=== PATIENT | male | born 1960 ===

== ENCOUNTER 2019-09-15 19:33 | Emergency (ER) | payer OTHER ==
--- NOTE | 2019-09-15 20:16 | Emergency Department Report ---
Blank Doc - Documentation Documentation: 58-year-old male that presents with chest pain, sob and dizziness. This initial assessment/diagnostic orders/clinical plan/treatment(s) is/are subject to change based on patient's health status, clinical progression and re- assessment by fellow clinical providers in the ED. Further treatment and workup at subsequent clinical providers discretion. Patient/guardians urged not to elope from the ED as their condition may be serious if not clinically assessed and managed. Initial orders include: 1- Patient sent to MAIN ED for further evaluation and treatment 2- EKG 3- CXR 4- labs
[2019-09-15 20:58] LABS: Basophils # (Auto) 0.1 K/mm3 (0.0-0.1); Basophils % (Auto) 1.1 % (0.0-1.8); Eosinophils # (Auto) 0.3 K/mm3 (0.0-0.4); Eosinophils % (Auto) 3.6 % (0.0-4.3); Hematocrit 47.4 % (35.5-45.6); Lymphocytes # (Auto) 2.1 K/mm3 (1.2-5.4); Lymphocytes % (Auto) 29.2 % (13.4-35.0); Mean Corpuscular HGB Conc 34 % (32-34); Mean Corpuscular Volume 82 fl (84-94); Monocytes # (Auto) 0.6 K/mm3 (0.0-0.8); Monocytes % (Auto) 8.5 % (0.0-7.3); Platelet Count 181 K/mm3 (140-440); Red Blood Count 5.81 M/mm3 (3.65-5.03); Red Cell Distribution Width 13.4 % (13.2-15.2)
[2019-09-15 21:05] LABS: INR 0.94 (0.87-1.13)
[2019-09-15 21:06] LABS: Partial Thromboplastin Time 26.1 Sec. (24.2-36.6)
--- NOTE | 2019-09-15 21:08 | XRay Report ---
CHEST 2 VIEWS INDICATION: Chest Pain. COMPARISON: None. FINDINGS: Support devices: None. Heart: Within normal limits. Lungs/Pleura: No acute air space or interstitial disease. No significant pleural effusion. IMPRESSION: No acute findings. Signer Name: Chris Mcdermott MD Signed: 09/15/2019 9:04 PM Workstation Name: [id number]
[2019-09-15 21:19] LABS: Alanine Aminotransferase 16 units/L (7-56); Albumin 4.2 g/dL (3.9-5); BUN/Creatinine Ratio 19; Blood Urea Nitrogen 15 mg/dL (9-20); Calcium 9.2 mg/dL (8.4-10.2); Hemolysis Index 20
[2019-09-15] MEDS ORDERED: BUTALB/ACETAMINOPHEN/CAFFEINE TAB PO ONE (22:36)
[2019-09-15] MEDS ORDERED: ASPIRIN 325 MG TAB PO ONE (22:36)
[2019-09-15] MEDS ORDERED: MECLIZINE 25 MG TAB PO ONE (22:36)
--- NOTE | 2019-09-15 23:30 | Cat Scan Report ---
CT HEAD WITHOUT CONTRAST INDICATION : dizziness. TECHNIQUE: Axial, coronal and sagittal CT imaging was performed from the skull apex through the skul l base without contrast. All CT scans at this location are performed using CT dose reduction for ALA RA by means of automated exposure control. COMPARISON: None available. FINDINGS: PARENCHYMA: No mass, midline shift, hemorrhage, extraaxial collection or acute territorial infarctio n. VENTRICLES: Symmetric and normal in size. SOFT TISSUES: Soft tissues including the orbits appear normal. BONES: No acute osseous abnormality. SINUSES: No significant abnormality. ADDITIONAL FINDINGS: None. IMPRESSION: No acute intracranial abnormality. Signer Name: Carson Munoz MD Signed: 09/15/2019 11:25 PM Workstation Name: [id number]
--- NOTE | 2019-09-16 00:07 | Emergency Department Report ---
ED General Adult HPI - General Chief complaint: Dizziness Stated complaint: BLOOD PRESSURE Time Seen by Provider: 09/15/19 20:15 Source: patient Mode of arrival: Ambulatory Limitations: No Limitations - History of Present Illness Initial comments: Patient is a 58-year-old [place] male with a history of hypertension and noncompliant on medications who presented to the ED with complaint of persistently elevated blood pressure, headache, chest wall tightness and lightheadedness with intermittent dizziness for the last 12 hours. Patient states that the last time he took his blood pressure medications was 3 days ago. Patient denies syncope, shortness of breath, cough, vision changes, seizures, diaphoresis, nausea, loss of consciousness, vomiting, neck pain or back pain or abdominal pain and palpitations. Patient states that he is supposed to be taking losartan 100 mg daily for hypertension. MD Complaint: Elevated BP; Headache; dizziness; chest pain -: Sudden, hour(s) (12) Location: head, chest Radiation: non-radiation Severity scale (0 -10): 4 Quality: burning, dull Consistency: intermittent Improves with: none Worsens with: none Associated Symptoms: denies other symptoms, chest pain, headaches, loss of appetite. denies: confusion, cough, diaphoresis, fever/chills, malaise, elder sea/vomiting, rash, seizure, shortness of breath, syncope, weakness, other Treatments Prior to Arrival: none - Related Data Previous Rx's Medication Instructions Recorded Last Taken Type Amlodipine Besylate [Norvasc] 5 mg PO DAILY #30 tablet 09/16/19 Unknown Rx Butalb/Acetamin/Caff 50-325-40 1 tab PO Q6HR PRN #12 tab 09/16/19 Unknown Rx [Fioricet 50-325-40] Meclizine [Antivert] 25 mg PO Q8H PRN #24 tablet 09/16/19 Unknown Rx Allergies Allergy/AdvReac Type Severity Reaction Status Date / Time No Known Allergies Allergy Verified 09/15/19 19:39 ED Review of Systems ROS: Stated complaint: BLOOD PRESSURE Other details as noted in HPI Constitutional: malaise. denies: chills, fever Eyes: denies: eye pain, eye discharge, vision change ENT: denies: ear pain, throat pain Respiratory: denies: cough, shortness of breath, SOB with exertion, SOB at rest, wheezing Cardiovascular: chest pain (chest wall pain). denies: palpitations, dyspnea on exertion, syncope, paroxysmal nocturnal dyspnea Endocrine: no symptoms reported Gastrointestinal: denies: abdominal pain, nausea, vomiting, diarrhea, constipation, hematemesis, hematochezia Genitourinary: denies: urgency, dysuria Musculoskeletal: denies: back pain, joint swelling, arthralgia Skin: denies: rash, lesions Neurological: headache, other (dizziness ). denies: weakness, paresthesias Psychiatric: denies: anxiety, depression Hematological/Lymphatic: denies: easy bleeding, easy bruising ED Past Medical Hx - Past Medical History Previous Medical History?: Yes Hx Hypertension: Yes - Surgical History Past Surgical History?: No - Social History Smoking Status: Never Smoker Substance Use Type: None - Medications Home Medications: Home Medications Medication Instructions Recorded Confirmed Last Taken Type Amlodipine Besylate [Norvasc] 5 mg PO DAILY #30 tablet 09/16/19 Unknown Rx Butalb/Acetamin/Caff 50-325-40 1 tab PO Q6HR PRN #12 tab 09/16/19 Unknown Rx [Fioricet 50-325-40] Meclizine [Antivert] 25 mg PO Q8H PRN #24 tablet 09/16/19 Unknown Rx ED Physical Exam - General Limitations: No Limitations General appearance: alert, in no apparent distress - Head Head exam: Present: atraumatic, normocephalic, normal inspection - Eye Eye exam: Present: normal appearance, PERRL, EOMI Pupils: Present: normal accommodation - ENT ENT exam: Present: normal exam, normal orophraynx, mucous membranes moist, TM's normal bilaterally, normal external ear exam - Neck Neck exam: Present: normal inspection, full ROM - Respiratory Respiratory exam: Present: normal lung sounds bilaterally. Absent: respiratory distress, wheezes, rales, chest wall tenderness, accessory muscle use, decreased breath sounds, prolonged expiratory - Cardiovascular Cardiovascular Exam: Present: regular rate, normal rhythm, normal heart sounds. Absent: systolic murmur, diastolic murmur, rubs, gallop - GI/Abdominal GI/Abdominal exam: Present: soft, normal bowel sounds. Absent: tenderness, guarding, rebound, hyperactive bowel sounds, hypoactive bowel sounds - Extremities Exam Extremities exam: Present: normal inspection, full ROM, normal capillary refill - Back Exam Back exam: Present: normal inspection, full ROM. Absent: CVA tenderness (L), muscle spasm, paraspinal tenderness, vertebral tenderness - Neurological Exam Neurological exam: Present: alert, oriented X3, CN II-XII intact, normal gait, reflexes normal - Psychiatric Psychiatric exam: Present: normal affect, normal mood, anxious. Absent: flat affect, manic, homicidal ideation, suicidal ideation - Skin Skin exam: Present: warm, dry, intact, normal color. Absent: rash ED Course Vital Signs 09/15/19 09/16/19 20:11 00:13 Temperature 98.6 F Pulse Rate 83 79 Respiratory 18 18 Rate Blood Pressure 159/107 Blood Pressure 150/99 [Left] O2 Sat by Pulse 98 98 Oximetry ED Medical Decision Making - Lab Data Result diagrams: 09/15/19 20:27 09/15/19 20:27 - EKG Data EKG shows normal: sinus rhythm Rate: normal - EKG Data Interpretation: normal EKG 09/16/19 00:06 EKG shows normal sinus rhythm with a ventricular rate of 71 bpm, no ST or T-wave abnormalities or pathological Q waves. - Radiology Data Radiology results: report reviewed, [place] [address] Cat Scan Report Signed Patient: MARILIA HECTOR MR#: [id number] : 1960 Acct:[id number] Age/Sex: 58 / M ADM Date: 09/15/19 Loc: ED Attending Dr: Ordering Physician: EMELINA GIBBS Date of Service: 09/15/19 Procedure(s): CT head/brain wo con Accession Number(s): [id number] cc: EMELINA GIBBS CT HEAD WITHOUT CONTRAST INDICATION : dizziness. TECHNIQUE: Axial, coronal and sagittal CT imaging was performed from the skull apex through the skull base without contrast. All CT scans at this location are performed using CT dose reduction for ALARA by means of automated exposure control. COMPARISON: None available. FINDINGS: PARENCHYMA: No mass, midline shift, hemorrhage, extraaxial collection or acute territorial infarction. VENTRICLES: Symmetric and normal in size. SOFT TISSUES: Soft tissues including the orbits appear normal. BONES: No acute osseous abnormality. SINUSES: No significant abnormality. ADDITIONAL FINDINGS: None. IMPRESSION: No acute intracranial abnormality. Signer Name: Carson Munoz MD Signed: 09/15/2019 11:25 PM Workstation Name: [id number] Transcribed By: HENRRY Dictated By: Carson Munoz MD Electronically Authenticated By: Carson Munoz MD Signed Date/Time: 09/15/192324 DD/ 23 TD/TT: Findings [facility] [address] [place] [address] XRay Report Signed Patient: MARILIA HECTOR MR#: [id number] : 1960 Acct:[id number] Age/Sex: 58 / M ADM Date: 09/15/19 Loc: ED Attending Dr: Ordering Physician: HARDY NAPIER NP Date of Service: 09/15/19 Procedure(s): XR chest routine 2V Accession Number(s): [id number] cc: HARDY NAPIER NP Fluoro Time In Minutes: CHEST 2 VIEWS INDICATION: Chest Pain. COMPARISON: None. FINDINGS: Support devices: None. Heart: Within normal limits. Lungs/Pleura: No acute air space or interstitial disease. No significant pleural effusion. IMPRESSION: No acute findings. Signer Name: Chris Mcdermott MD Signed: 09/15/2019 9:04 PM Workstation Name: [id number] Transcribed By: LYDIA Dictated By: Chris Mcdermott MD Electronically Authenticated By: Chris Mcdermott MD Signed Date/Time: 09/15/192103 DD/ 02 TD/TT: - Medical Decision Making This is a 58-year-old [place] male with a history of hypertension who presented to the ED with elevated blood pressure, headache, dizziness and chest tightness for 12 hours intermittently after he failed to take his blood pressure medications for 2 days. In the ED, patient is alert and oriented 3, hypertensive in triage but otherwise in no acute distress. EKG shows normal sinus rhythm with a ventricular rate of 71 bpm, and no ST or T-wave abnormalities or pathological Q waves. Chest x-ray shows no acute cardiopulmonary abnormalities or pneumonitis. Head CT scan without contrast justin ws no acute intracranial abnormalities or hemorrhage. Lab test results were reviewed and are all nonactionable including initial troponin and repeat troponin levels. Patient was treated in the ED for headache and dizziness. On reevaluation, patient's vital signs are stable, headache and dizziness resolved. - Differential Diagnosis Dizziness; Uncontrolled HTN; ACS; SAH; Anxiety; tension headache Critical care attestation.: If time is entered above; I have spent that time in minutes in the direct care of this critically ill patient, excluding procedure time. ED Disposition Clinical Impression: Uncontrolled stage 2 hypertension, Light-headedness Tension type headache Qualifiers: Headache chronicity pattern: acute headache Intractability: not intractable Qualified Code(s): G44.209 - Tension-type headache, unspecified, not intractable Disposition: DC-01 TO HOME OR SELFCARE Is pt being admited?: No Does the pt Need Aspirin: No Condition: Stable Instructions: Hypertension (ED), Lightheadedness (ED), Acute Headache (ED) Additional Instructions: Take medications with food, drink plenty of fluids and follow-up with your primary care physician in 5-7 days for reevaluation. Return to the ED immediately if symptoms get worse. Prescriptions: Meclizine [Antivert] 25 mg PO Q8H PRN #24 tablet PRN Reason: Vertigo Butalb/Acetamin/Caff 50-325-40 [Fioricet 50-325-40] 1 tab PO Q6HR PRN #12 tab PRN Reason: Headache Amlodipine Besylate [Norvasc] 5 mg PO DAILY #30 tablet Referrals: PRIMARY CARE, [Primary Care Provider] - 3-5 Days Forms: Work/School Release Form(ED) Time of Disposition: 00:14 Print Language: HONDURAN
[2019-09-16 00:14] VITALS: BP 150/99
== END 2019-09-16 01:06 | disposition home or self-care (01) ==
LOC: ED 19:33
DX: I10 Essential (primary) hypertension (principal); R42 Dizziness and giddiness; G44.209 Tension-type headache, unspecified, not intractable; Z79.899 Other long term (current) drug therapy
CPT/HCPCS: 36415; 70450; 71046; 80053; 84484; 85025; 85610; 85730; 93005; 93010

== ENCOUNTER 2021-02-05 21:25 | Observation (INO) | payer OTHER ==
[2021-02-05] MEDS ORDERED: ASPIRIN 325 MG TAB PO ONE (21:37)
--- NOTE | 2021-02-05 22:01 | XRay Report ---
CHEST PA AND LATERAL VIEWS INDICATION: chest pain. COMPARISON: 09/15/2019 FINDINGS: Support devices: None Heart: Normal and unchanged Lungs/Pleura: No acute pulmonary or pleural findings. IMPRESSION: 1. No active disease and no interval change. Signer Name: Jerel Son MD Signed: 02/05/2021 9:56 PM Workstation Name: [id number]
[2021-02-05 22:15] LABS: Basophils # (Auto) 0.1 K/mm3 (0.0-0.1); Basophils % (Auto) 0.7 % (0.0-1.8); Eosinophils # (Auto) 0.1 K/mm3 (0.0-0.4); Eosinophils % (Auto) 1.1 % (0.0-4.3); Hematocrit 43.6 % (35.5-45.6); Hemoglobin 14.9 gm/dl (11.8-15.2); Lymphocytes # (Auto) 2.4 K/mm3 (1.2-5.4); Lymphocytes % (Auto) 29.5 % (13.4-35.0); Mean Corpuscular HGB Conc 34 % (32-34); Mean Corpuscular Volume 83 fl (84-94); Monocytes # (Auto) 0.5 K/mm3 (0.0-0.8); Monocytes % (Auto) 6.6 % (0.0-7.3); Platelet Count 205 K/mm3 (140-440); Red Blood Count 5.26 M/mm3 (3.65-5.03); Red Cell Distribution Width 13.7 % (13.2-15.2)
[2021-02-05 22:31] LABS: Alanine Aminotransferase 21 units/L (7-56); Albumin 4.6 g/dL (3.9-5); BUN/Creatinine Ratio 14; Blood Urea Nitrogen 13 mg/dL (9-20); Calcium 9.3 mg/dL (8.4-10.2); Hemolysis Index 16
--- NOTE | 2021-02-05 23:20 | Emergency Department Report ---
ED General Adult HPI - General Chief complaint: Chest Pain Stated complaint: DIZZINESS/CHEST PAIN PUI?: No Time Seen by Provider: 02/05/21 23:05 Source: patient, RN notes reviewed, old records reviewed Mode of arrival: Ambulatory Limitations: No Limitations - History of Present Illness Initial comments: The patient was evaluated in the emergency department for symptoms described in the history of present illness. He/she was evaluated in the context of the global COVID-19 pandemic, which necessitated consideration that the patient might be at risk for infection with the virus that causes COVID-19. Institutional protocols and algorithms that pertain to the evaluation of patients at risk for COVID-19 are in a state of rapid change based on information released by regulatory bodies including the CDC and federal and state organizations. These policies and algorithms were followed during the patient's care in the emergency department. Please note that these policies, procedures and recommendations changed on a rapid basis. Past medical history: Hypertension, family history significant for coronary artery disease in patient's brother, who is now . Primary CARE doctor: Dr. Ramos The patient is a 60-year-old gentleman. He is not known to myself previously. He presents to the ER today with a complaint of nontraumatic left-sided chest burning, which has been present for approximately 14 hours. This left-sided pain does not radiate to the back, arms or neck. He denies vomiting, diaphoresis but endorses mild intermittent shortness of breath. He denies leg pain, leg swelling, DVT and pulmonary embolism risk factors. He denies headache and neck pain, abdominal pain, vomiting, hematemesis, Covid symptomatology. He did endorse a sensation of "dizziness." He describes this as a sensation of feeling "weak." The patient subjectively feels like he is not off balance, and also denies subjective ataxia, loss of vision, and focal extremity weakness/numbness. He took 1 tablet of aspirin this morning. 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 -: Gradual, hour(s) Location: chest Radiation: non-radiation Quality: burning Consistency: constant Improves with: none Worsens with: none Associated Symptoms: denies other symptoms, other (Patient reports dizziness) - Related Data Previous Rx's Medication Instructions Recorded Last Taken Type Amlodipine Besylate [Norvasc] 5 mg PO DAILY #30 tablet 09/16/19 1 Day Ago Rx ~02/05/21 Butalb/Acetamin/Caff 50-325-40 1 tab PO Q6HR PRN #12 tab 09/16/19 1 Day Ago Rx [Fioricet 50-325-40] ~02/05/21 Meclizine [Antivert] 25 mg PO Q8H PRN #24 tablet 09/16/19 1 Day Ago Rx ~02/05/21 Allergies Allergy/AdvReac Type Severity Reaction Status Date / Time No Known Allergies Allergy Verified 09/15/19 19:39 ED Review of Systems ROS: Stated complaint: DIZZINESS/CHEST PAIN Other details as noted in HPI Constitutional: denies: fever Eyes: denies: vision change ENT: denies: epistaxis Respiratory: shortness of breath. denies: cough Cardiovascular: chest pain Gastrointestinal: denies: abdominal pain, nausea, vomiting, hematemesis, melena, hematochezia Genitourinary: denies: dysuria Musculoskeletal: denies: back pain Neurological: weakness. denies: headache, abnormal gait ED Past Medical Hx - Past Medical History Previous Medical History?: Yes Hx Hypertension: Yes - Surgical History Past Surgical History?: No - Social History Smoking Status: Never Smoker Substance Use Type: None - Medications Home Medications: Home Medications Medication Instructions Recorded Confirmed Last Taken Type Amlodipine Besylate [Norvasc] 5 mg PO DAILY #30 tablet 09/16/19 02/06/21 1 Day Ago Rx ~02/05/21 Butalb/Acetamin/Caff 50-325-40 1 tab PO Q6HR PRN #12 tab 09/16/19 02/06/21 1 Day Ago Rx [Fioricet 50-325-40] ~02/05/21 Meclizine [Antivert] 25 mg PO Q8H PRN #24 tablet 09/16/19 02/06/21 1 Day Ago Rx ~02/05/21 ED Physical Exam - General Limitations: No Limitations General appearance: alert, in no apparent distress - Head Head exam: Present: atraumatic, normocephalic - Eye Eye exam: Present: normal appearance, PERRL, EOMI, other (Visual acuity intact to finger counting, color perception, reading at a close distance). Absent: nystagmus - ENT ENT exam: Present: normal exam, normal orophraynx, mucous membranes moist, normal external ear exam - Neck Neck exam: Present: normal inspection, full ROM. Absent: tenderness, meningismus - Respiratory Respiratory exam: Present: normal lung sounds bilaterally. Absent: respiratory distress, wheezes, rales, rhonchi, stridor, decreased breath sounds - Cardiovascular Cardiovascular Exam: Present: normal rhythm, tachycardia, normal heart sounds. Absent: systolic murmur, diastolic murmur, rubs, gallop - GI/Abdominal GI/Abdominal exam: Present: soft. Absent: distended, tenderness, guarding, rebound, rigid, pulsatile mass - Rectal Rectal exam: Present: deferred - Extremities Exam Extremities exam: Present: normal inspection, full ROM, other (2+ pulses noted in the bilateral upper and lower extremities. There is no palpable cord. negative Homans sign. Muscular compartments are soft. The pelvis is stable.). Absent: pedal edema, calf tenderness - Back Exam Back exam: Present: normal inspection, full ROM. Absent: tenderness, CVA tenderness (R), CVA tenderness (L), paraspinal tenderness, vertebral tenderness - Neurological Exam Neurological exam: Present: alert (While ambulating with a tandem gait, patient became very unsteady.), oriented X3, abnormal gait (There is no past-pointing. There is no pronator drift. There is normal [id number]. Patient walks with a relatively steady gait, however, borderline positive Romberg, not able to t olerate tandem gait), other (No facial droop. Tongue midline. Extraocular movements intact bilaterally. Facial sensation intact to light touch in V1, V2, V3 distribution bilaterally. 5 and a 5 strength in 4 extremities. Sensation intact to light touch in 4 extremities.). Absent: motor sensory deficit - Psychiatric Psychiatric exam: Present: normal affect, normal mood - Skin Skin exam: Present: warm, dry, intact, normal color. Absent: rash ED Course Vital Signs 02/05/21 02/05/21 02/05/21 21:32 23:39 23:40 Temperature 98.8 F Pulse Rate 104 H 81 82 Respiratory 18 12 10 L Rate Blood Pressure 163/100 165/108 O2 Sat by Pulse 97 100 Oximetry 02/05/21 02/06/21 02/06/21 23:56 00:00 00:16 Temperature Pulse Rate 82 83 76 Respiratory 10 L 13 Rate Blood Pressure 165/108 153/95 153/95 O2 Sat by Pulse 98 100 97 Oximetry 02/06/21 02/06/21 02/06/21 00:30 00:46 01:00 Temperature Pulse Rate 71 83 79 Respiratory 19 11 L 17 Rate Blood Pressure 131/88 165/108 134/89 O2 Sat by Pulse 98 100 98 Oximetry 02/06/21 02/06/21 02/06/21 01:16 01:30 01:46 Temperature Pulse Rate 70 65 69 Respiratory 15 14 12 Rate Blood Pressure 134/89 126/84 126/84 O2 Sat by Pulse 97 100 99 Oximetry 02/06/21 02/06/21 02/06/21 02:00 02:16 02:30 Temperature Pulse Rate 77 69 70 Respiratory 18 17 13 Rate Blood Pressure 131/88 131/88 126/94 O2 Sat by Pulse 98 100 97 Oximetry 02/06/21 02/06/21 02/06/21 02:46 03:00 03:16 Temperature Pulse Rate 86 80 71 Respiratory 16 16 19 Rate Blood Pressure 126/94 128/92 128/92 O2 Sat by Pulse 99 99 Oximetry - Reevaluation(s) Reevaluation #1: 02/05/21 23:32 Differential diagnosis, including but not limited to: GERD, gastritis, hiatal hernia, pneumonia, pulmonary embolism, acute coronary syndrome, intracranial lesion Assessment and plan: 60-year-old gentleman, who is tachycardic, with a new left axis deviation, new left anterior fascicular block, complaint of chest pain, moderate risk for major adverse cardiac event as per heart score, with GCS of 15, NIH score of 0, who walks with a steady regular gait, but has an abnormal tandem gait, with complaint of chest pain and dizziness. Not a TPA candidate as he presents more than 4.5 hours after symptom onset, his last known well time is not exactly known, but he believes his chest pain started at 9:00 this morning. His neurologic examination is not suggestive of a large vessel occlusion. He is amenable to admission and hospitalization for cardiac risk ratification. He denies consumption of medications to treat erectile dysfunction. We will obtain CT angiogram of the chest, given tachycardia, left axis deviation, left anterior fascicular block, chest pain, and complaint of dizziness. We will also obtain noncontrast CT scan of the brain. Assuming no hemorrhage, patient will be given aspirin. Reassess after initial data points Reevaluation #2: 02/06/21 01:09 CT scan of the brain negative for acute findings CT angiogram chest negative for pulmonary embolism. It does demonstrate a 5.5 cm a sending thoracic aneurysm, without evidence of rupture or dissection. I contacted cardiothoracic surgery on-call for [facility], Dr. Sierra Webb, and we discussed the patient's history, physical, and pertinent imaging studies. She advises that this finding does not require emergent or emergent transfer at this time, this can be followed up as an outpatient, preferably within the next few weeks, once the patient has been medically optimized and had a cardiac risk ratification, etc. Given that patient has improved blood pressure, equal pulses in the upper and lower extremities, no abdominal pain, does not appear to be in acute distress at this time, I am in agreement with this plan of care and recommendation. Patient will be admitted to the internal medicine service under the care of Dr. Jessica Mcfadden ED Medical Decision Making - Lab Data Result diagrams: 02/07/21 05:29 02/07/21 05:29 Vital Signs 02/05/21 21:32 Temperature 98.8 F Pulse Rate 104 H Respiratory 18 Rate Blood Pressure 163/100 O2 Sat by Pulse 97 Oximetry Lab Results 02/05/21 02/05/21 Range/Units 21:50 21:50 WBC 8.1 (4.5-11.0) K/mm3 RBC 5.26 H (3.65-5.03) M/mm3 Hgb 14.9 (11.8-15.2) gm/dl Hct 43.6 (35.5-45.6) % MCV 83 L (84-94) fl MCH 28 (28-32) pg MCHC 34 (32-34) % RDW 13.7 (13.2-15.2) % Plt Count 205 (140-440) K/mm3 Lymph % (Auto) 29.5 (13.4-35.0) % [place] % (Auto) 6.6 (0.0-7.3) % Eos % (Auto) 1.1 (0.0-4.3) % Baso % (Auto) 0.7 (0.0-1.8) % Lymph # (Auto) 2.4 (1.2-5.4) K/mm3 [place] # (Auto) 0.5 (0.0-0.8) K/mm3 Eos # (Auto) 0.1 (0.0-0.4) K/mm3 Baso # (Auto) 0.1 (0.0-0.1) K/mm3 Seg Neutrophils % 62.1 (40.0-70.0) % Seg Neutrophils # 5.0 (1.8-7.7) K/mm3 Sodium 138 (137-145) mmol/L Potassium 3.8 (3.6-5.0) mmol/L Chloride 102.9 (98-107) mmol/L Carbon Dioxide 23 (22-30) mmol/L Anion Gap 16 mmol/L BUN 13 (9-20) mg/dL Creatinine 0.9 (0.8-1.3) mg/dL Estimated GFR > 60 ml/min BUN/Creatinine Ratio 14 % Glucose 117 H (75-100) mg/dL Calcium 9.3 (8.4-10.2) mg/dL Total Bilirubin 0.50 (0.1-1.2) mg/dL AST 17 (5-40) units/L ALT 21 (7-56) units/L Alkaline Phosphatase 64 (35-129) units/L Troponin T < 0.010 (0.00-0.029) ng/mL Total Protein 7.7 (6.3-8.2) g/dL Albumin 4.6 (3.9-5) g/dL Albumin/Globulin Ratio 1.5 % - EKG Data -: EKG Interpreted by Oh EKG shows normal: sinus rhythm Rate: tachycardia - EKG Data Interpretation: other 02/05/21 23:29 EKG interpreted 21: 44 Sinus rhythm, first-degree AV block, left axis deviation, left anterior fascicular block, left ventricular hypertrophy, and poor R wave progression. This is an abnormal EKG. When compared to prior EKG from 2019, left axis deviation is new, left anterior fascicular block is new. This is not a STEMI. - Radiology Data Radiology results: pending, report reviewed, image reviewed [facility] [address] [place] [address] XRay Report Signed Patient: MARILIA HECTOR MR#: [id number] : 1960 Acct:[id number] Age/Sex: 60 / M ADM Date: 02/05/21 Loc: ED Attending Dr: Ordering Physician: CALLY HERNANDEZ MD Date of Service: 02/05/21 Procedure(s): XR chest routine 2V Accession Number(s): [id number] cc: CALLY HERNANDEZ MD Fluoro Time In Minutes: CHEST PA AND LATERAL VIEWS INDICATION: chest pain. COMPARISON: 09/15/2019 FINDINGS: Support devices: None Heart: Normal and unchanged Lungs/Pleura: No acute pulmonary or pleural findings. IMPRESSION: 1. No active disease and no interval change. Signer Name: Jerel Son MD Signed: 02/05/2021 9:56 PM Workstation Name: [id number] Transcribed By: TM Dictated By: Jerel Son MD Electronically Authenticated By: Jerel Son MD Signed Date/Time: 02/05/212155 DD/ 54 CTA CHEST WITH IV CONTRAST INDICATION / CLINICAL INFORMATION: dizzy chest pain ekg changes. TECHNIQUE: Axial CT images were obtained through the chest after injection of 100 mL Omnipaque 350 IV contrast. 3 plane MIP and/or 3D reconstructions were produced. All CT scans at this location are performed using CT dose reduction for ALARA by means of automated exposure control. COMPARISON: None available. FINDINGS: PULMONARY ARTERIES: No pulmonary emboli. THORACIC AORTA: Aneurysmal dilation of the ascending thoracic aorta measuring up to 5.5 cm in diameter. HEART: No significant abnormality. CORONARY ARTERIES: No significant calcification. PLEURA: No pleural effusion. No pneumothorax. LYMPH NODES: No significant adenopathy. LUNGS: No acute air space or interstitial disease. ADDITIONAL FINDINGS: None. UPPER ABDOMEN: No acute findings. Right renal cyst. SKELETAL STRUCTURES: No significant osseous abnormality. IMPRESSION: 1. No CT evidence for pulmonary embolism. 2. No acute findings. 3. Aneurysmal dilation of the ascending thoracic aorta measuring up to 5.5 cm in diameter. Signer Name: Liv Gill MD Signed: 02/05/2021 11:44 PM Workstation Name: [id number] CT head/brain wo con INDICATION: DIZZY. TECHNIQUE: Routine CT head without contrast. All CT scans at this location are performed using CT dose reduction for ALARA by means of automated exposure control. COMPARISON: CT head 09/15/2019 FINDINGS: BRAIN / INTRACRANIAL CONTENTS: No acute hemorrhage, mass effect, midline shift, or hydrocephalus. No appreciable acute large territorial or lacunar infarct. No chronic infarct or focal atrophy. Normal brain volume and ventricular/sulcal size for age. ORBITS: No significant abnormality of visualized orbits. SINUSES / MASTOIDS: No significant abnormality of visualized sinuses and mastoid air cells. ADDITIONAL FINDINGS: None. IMPRESSION: 1. No acute intracranial abnormality. Signer Name: Liv Glil MD Signed: 02/05/2021 11:39 PM Workstation Name: [facility] Critical Care Time: Yes Critical care time in (mins) excluding proc time.: 35 Critical care attestation.: If time is entered above; I have spent that time in minutes in the direct care of this critically ill patient, excluding procedure time. ED Disposition Clinical Impression: Acute chest pain, Elevated blood pressure reading, Abnormal EKG, Dizziness, Aneurysm, ascending aorta Disposition: OP ADMIT IP TO THIS HOSP Is pt being admited?: Yes Does the pt Need Aspirin: Yes Condition: Good Heart Score - HEART Score History: Moderately suspicious EKG: Non-specific Age: 45-65 Risk factors: > 3 risk factors or hx of atherosclerotic disease Troponin: < normal limit HEART Score: 5 - EKG Read Time Time EKG Completed: 21:38 EKG Read Time: 21:44 - Critical Actions Critical Actions: 4-6 pts:12-16.6% risk of adverse cardiac event. Should be admitted - Assessment Assessment Interval: Baseline - Level of Consciousness 1a. Level of Consciousness: alert/keenly responsive - LOC Questions 1b. LOC Questions: answers both correctly - LOC Command 1c. LOC Commands: performs tasks correctly - Best Gaze 2. Best Gaze: normal - Visual 3. Visual: no visual loss - Facial Palsy 4. Facial Palsy: normal symmetrical movement - Motor Arm 5a. Motor Arm Left: no drift 5b. Motor Arm Right: no drift - Motor Leg 6a. Motor Leg Left: no drift 6b. Motor Leg Right: no drift - Limb Ataxia 7. Limb Ataxia: absent - Sensory 8. Sensory: normal - Best Language 9. Best Language: no aphasia - Dysarthria 10. Dysarthria: normal - Extinction and Inattention 11. Extinction/Inattention: no abnormality - Scoring Total Score: 0 Stroke Severity: No Stroke Symptoms
[2021-02-05] MEDS ORDERED: FAMOTIDINE 20 MG/2 ML INJ IV ONE (23:21)
[2021-02-05] MEDS ORDERED: NITROGLYCERIN 0.4 MG TAB SUBL SL PRN (23:21)
[2021-02-05] MEDS ORDERED: SODIUM CHLORIDE 0.9% 500 ML 500 ML IV ONE (23:21)
--- NOTE | 2021-02-06 00:43 | Cat Scan Report ---
CT head/brain wo con INDICATION: DIZZY. TECHNIQUE: Routine CT head without contrast. All CT scans at this location are performed using CT dos e reduction for ALARA by means of automated exposure control. COMPARISON: CT head 09/15/2019 FINDINGS: BRAIN / INTRACRANIAL CONTENTS: No acute hemorrhage, mass effect, midline shift, or hydrocephalus. No appreciable acute large territorial or lacunar infarct. No chronic infarct or focal atrophy. Normal b rain volume and ventricular/sulcal size for age. ORBITS: No significant abnormality of visualized orbits. SINUSES / MASTOIDS: No significant abnormality of visualized sinuses and mastoid air cells. ADDITIONAL FINDINGS: None. IMPRESSION: 1. No acute intracranial abnormality. Signer Name: Liv Gill MD Signed: 02/06/2021 12:39 AM Workstation Name: [id number]
--- NOTE | 2021-02-06 00:49 | Cat Scan Report ---
CTA CHEST WITH IV CONTRAST INDICATION / CLINICAL INFORMATION: dizzy chest pain ekg changes. TECHNIQUE: Axial CT images were obtained through the chest after injection of 100 mL Omnipaque 350 IV contrast. 3 plane MIP and/or 3D reconstructions were produced. All CT scans at this location are performed usin g CT dose reduction for JEIMYRA by means of automated exposure control. COMPARISON: None available. FINDINGS: PULMONARY ARTERIES: No pulmonary emboli. THORACIC AORTA: Aneurysmal dilation of the ascending thoracic aorta measuring up to 5.5 cm in diamete r. HEART: No significant abnormality. CORONARY ARTERIES: No significant calcification. PLEURA: No pleural effusion. No pneumothorax. LYMPH NODES: No significant adenopathy. LUNGS: No acute air space or interstitial disease. ADDITIONAL FINDINGS: None. UPPER ABDOMEN: No acute findings. Right renal cyst. SKELETAL STRUCTURES: No significant osseous abnormality. IMPRESSION: 1. No CT evidence for pulmonary embolism. 2. No acute findings. 3. Aneurysmal dilation of the ascending thoracic aorta measuring up to 5.5 cm in diameter. Signer Name: Liv Gill MD Signed: 02/06/2021 12:44 AM Workstation Name: [id number]
[2021-02-06] MEDS ORDERED: METOPROLOL TARTRATE 5 MG/5 ML INJ IV ONE (00:52)
[2021-02-06] MEDS ORDERED: ASPIRIN 81 MG TAB CHEW PO ONE (01:12)
[2021-02-06] MEDS ORDERED: MORPHINE 2 MG/1 ML INJ IV PRN (01:48)
[2021-02-06] MEDS ORDERED: NITROGLYCERIN 0.4 MG TAB SUBL SL PRN (01:48)
[2021-02-06] MEDS ORDERED: MAGNESIUM HYDROXIDE (MOM) ORAL LIQD UDC PO PRN (01:48)
[2021-02-06] MEDS ORDERED: ONDANSETRON 4 MG/2 ML INJ IV PRN (01:48)
[2021-02-06] MEDS ORDERED: ACETAMINOPHEN 325 MG TAB PO PRN ×3 (01:48→02:16)
[2021-02-06] MEDS ORDERED: traMADol 50 MG TAB PO PRN (01:48)
--- NOTE | 2021-02-06 02:00 | History and Physical Report ---
History of Present Illness Date of examination: 02/06/21 Date of admission: 02/06/2021 Chief complaint: Chest Pain History of present illness: 60-year-old male with known history of hypertension presenting in the emergency room today complaining of chest pain and dizziness. Chest pain is said to be left-sided. There has been no radiation. Denies any nausea vomiting, no headache and no diaphoresis. He has been having some intermittent shortness of breath. He denies any fever or chills, no headache, no nausea vomiting and no abdominal pain. There is no known relieving or exacerbating factor for his chest pain. Work-up in the emergency room today, CT angiogram of the chest reveals a 5.5 cm aneurysmal dilatation of the ascending thoracic aorta. Chest x-ray was unremarkable. Troponin was negative. EKG appeared slightly different from previous. Patient be admitted for chest pain work-up. Past History Past Medical History: hypertension Past Surgical History: No surgical history Social history: no significant social history Family history: CAD (Brother of [place]) Medications and Allergies Allergies Allergy/AdvReac Type Severity Reaction Status Date / Time No Known Allergies Allergy Verified 09/15/19 19:39 Home Medications Medication Instructions Recorded Confirmed Last Taken Type Amlodipine Besylate [Norvasc] 5 mg PO DAILY #30 tablet 09/16/19 02/06/21 1 Day Ago Rx ~02/05/21 Butalb/Acetamin/Caff 50-325-40 1 tab PO Q6HR PRN #12 tab 09/16/19 02/06/21 1 Day Ago Rx [Fioricet 50-325-40] ~02/05/21 Meclizine [Antivert] 25 mg PO Q8H PRN #24 tablet 09/16/19 02/06/21 1 Day Ago Rx ~02/05/21 Active Meds: Active Medications Acetaminophen (Acetaminophen 325 Mg Tab) 650 mg PO Q4H PRN PRN Reason: Pain MILD(1-3)/Fever >100.5/LIN Nitroglycerin (Nitroglycerin 0.4 Mg Tab Subl) 0.4 mg SL .Q5MIN PRN PRN Reason: Chest Pain Last Admin: 02/05/21 23:44 Dose: 0.4 mg Documented by: Review of Systems Constitutional: no fever, no chills Ears, nose, mouth and throat: no nasal congestion, no sore throat Cardiovascular: chest pain, no palpitations, no syncope Respiratory: no cough, no shortness of breath Gastrointestinal: no abdominal pain, no nausea, no vomiting, no diarrhea Genitourinary Male: no dysuria, no hematuria, no flank pain, no nocturia Musculoskeletal: no neck pain, no low back pain Integumentary: no rash, no pruritis Neurological: other (Dizziness), no headaches, no confusion Psychiatric: no anxiety, no depression Endocrine: no polyphagia, no polydipsia, no polyuria, no nocturia Exam - Constitutional Vitals: Temp Pulse Resp BP Pulse Ox 98.8 F 69 12 126/84 99 02/05/21 21:32 02/06/21 01:46 02/06/21 01:46 02/06/21 01:46 02/06/21 01:46 General appearance: Present: no acute distress, well-nourished - EENT Eyes: Present: PERRL, EOM intact. Absent: scleral icterus ENT: hearing intact, clear oral mucosa, dentition normal - Neck Neck: Present: supple, normal ROM - Respiratory Respiratory effort: normal Respiratory: bilateral: CTA - Cardiovascular Rhythm: regular Heart Sounds: Present: S1 & S2. Absent: gallop, systolic murmur, diastolic murmur, rub, click - Extremities Extremities: no ischemia, pulses intact, pulses symmetrical, No edema, normal temperature, normal color, Full ROM Peripheral Pulses: within normal limits - Abdominal General gastrointestinal: Present: soft, non-tender, non-distended, normal bowel sounds. Absent: mass - Integumentary Integumentary: Present: clear, warm, dry, normal turgor. Absent: rash - Musculoskeletal Musculoskeletal: strength equal bilaterally - Psychiatric Psychiatric: appropriate mood/affect, intact judgment & insight, memory intact, cooperative - Neurologic Neurologic: CNII-XII intact, no focal deficits, moves all extremities HEART Score - HEART Score History: Moderately suspicious EKG: Non-specific Age: 45-65 Risk factors: > 3 risk factors or hx of atherosclerotic disease Troponin: Troponin T < 0.010 ng/mL (0.00-0.029) 02/06/21 00:43 Troponin: < normal limit HEART Score: 5 - Critical Actions Critical Actions: 4-6 pts:12-16.6% risk of adverse cardiac event. Should be admitted Results - Labs CBC & Chem 7: 02/05/21 21:50 02/05/21 21:50 Labs: Abnormal lab results 02/05/21 02/05/21 Range/Units 21:50 21:50 RBC 5.26 H (3.65-5.03) M/mm3 MCV 83 L (84-94) fl Glucose 117 H (75-100) mg/dL Assessment and Plan - Patient Problems (1) Acute chest pain Current Visit: Yes Status: Acute Plan to address problem: Patient admitted and placed on telemetry. Will check serial cardiac enzymes. Will place on daily aspirin, sublingual nitroglycerin and IV morphine as needed for chest pain. Patient scheduled for stress test and echocardiogram. Consult placed to cardiology for evaluation. (2) Hypertension Current Visit: Yes Status: Acute Plan to address problem: We will resume routine home medications and monitor vital signs closely. (3) Dizziness Current Visit: Yes Status: Acute (4) Abnormal EKG Current Visit: Yes Status: Acute Plan to address problem: We will monitor EKG and await evaluation by cardiology. (5) Aneurysm, ascending aorta Current Visit: Yes Status: Acute Plan to address problem: Consult placed to vascular surgery for evaluation and recommendation. (6) DVT prophylaxis Current Visit: Yes Status: Acute Plan to address problem: Patient placed on subcutaneous heparin. (7) Full code status Current Visit: Yes Status: Acute Plan to address problem: Patient is full code.
[2021-02-06 08:28] LABS: Basophils % (Auto) 0.6 % (0.0-1.8); Eosinophils # (Auto) 0.2 K/mm3 (0.0-0.4); Eosinophils % (Auto) 3.2 % (0.0-4.3); Hematocrit 42.1 % (35.5-45.6); Hemoglobin 14.1 gm/dl (11.8-15.2); Lymphocytes # (Auto) 2.5 K/mm3 (1.2-5.4); Lymphocytes % (Auto) 34.1 % (13.4-35.0); Mean Corpuscular HGB Conc 33 % (32-34); Mean Corpuscular Volume 83 fl (84-94); Monocytes # (Auto) 0.6 K/mm3 (0.0-0.8); Monocytes % (Auto) 7.8 % (0.0-7.3); Platelet Count 190 K/mm3 (140-440); Red Blood Count 5.09 M/mm3 (3.65-5.03)
[2021-02-06 08:46] LABS: BUN/Creatinine Ratio 17; Blood Urea Nitrogen 15 mg/dL (9-20); Calcium 8.5 mg/dL (8.4-10.2); Hemolysis Index 11
[2021-02-06 08:52] LABS: Chol/HDL Ratio 4.23 %
--- NOTE | 2021-02-06 10:07 | Consultation ---
History of Present Illness - Reason for Consult Consult date: 02/06/21 Ascending Aortic Aneurysm Requesting physician: KOLBY BROWNE - History of Present Illness The patient is a 60-year-old male with a history of hypertension who presented to the emergency department with a complaint of left side chest pain. He describes the pain as a burning pain that began yesterday. He states the pain did not radiate and was constant. The pain resolved after receiving pain medication in the emergency department. He says he has had previous episodes of this pain that resolved without intervention. These previous episodes did not have any associated back pain or radiation of the pain. He has intermittent shortness of breath however this is not associated with his chest pain. He has no additional complaints at this time. Past History Past Medical History: hypertension Past Surgical History: Other (Lithotripsy for multiple renal calculi) Social history: no significant social history. denies: smoking, alcohol abuse Family history: CAD (Brother of [place]) Medications and Allergies Allergies Allergy/AdvReac Type Severity Reaction Status Date / Time No Known Allergies Allergy Verified 09/15/19 19:39 Home Medications Medication Instructions Recorded Confirmed Last Taken Type Amlodipine Besylate [Norvasc] 5 mg PO DAILY #30 tablet 09/16/19 02/06/21 1 Day Ago Rx ~02/05/21 Butalb/Acetamin/Caff 50-325-40 1 tab PO Q6HR PRN #12 tab 09/16/19 02/06/21 1 Day Ago Rx [Fioricet 50-325-40] ~02/05/21 Meclizine [Antivert] 25 mg PO Q8H PRN #24 tablet 09/16/19 02/06/21 1 Day Ago Rx ~02/05/21 Active Meds: Active Medications Acetaminophen (Acetaminophen 325 Mg Tab) 650 mg PO Q4H PRN PRN Reason: Pain MILD(1-3)/Fever >100.5/LIN Aspirin (Aspirin Ec 325 Mg Tab) 325 mg PO QDAY ANGELIKA Heparin Sodium (Porcine) (Heparin 5,000 Unit/1 Ml Vial) 5,000 unit SUB-Q Q8HR ANGELIKA Magnesium Hydroxide (Magnesium Hydroxide (Mom) Oral Liqd Udc) 30 ml PO Q4H PRN PRN Reason: Constipation Morphine Sulfate (Morphine 2 Mg/1 Ml Inj) 2 mg IV Q5MIN PRN PRN Reason: Chest Pain Nitroglycerin (Nitroglycerin 0.4 Mg Tab Subl) 0.4 mg SL Q5M PRN PRN Reason: Chest Pain Ondansetron HCl (Ondansetron 4 Mg/2 Ml Inj) 4 mg IV Q8H PRN PRN Reason: Nausea And Vomiting Sodium Chloride (Sodium Chloride 0.9% 10 Ml Flush Syringe) 10 ml IV BID ANGELIKA Sodium Chloride (Sodium Chloride 0.9% 10 Ml Flush Syringe) 10 ml IV PRN PRN PRN Reason: LINE FLUSH Tramadol HCl (Tramadol 50 Mg Tab) 50 mg PO Q6H PRN PRN Reason: Pain, Moderate (4-6) Review of Systems All systems: negative Exam - Constitutional Vitals: Temp Pulse Resp BP Pulse Ox 97.9 F 91 H 18 124/81 99 02/06/21 08:10 02/06/21 08:10 02/06/21 08:10 02/06/21 08:10 02/06/21 08:10 General appearance: Present: no acute distress - Respiratory Respiratory effort: normal - Cardiovascular Rhythm: regular - Extremities Extremities: no ischemia, pulses intact (Palpable posterior tibial pulses bilaterally, palpable radial pulses bilaterally) - Abdominal General gastrointestinal: Present: soft, non-tender, non-distended Male genitourinary: Present: deferred - Rectal Rectal Exam: deferred - Musculoskeletal Musculoskeletal: strength equal bilaterally Results - Labs CBC & Chem 7: 02/06/21 07:38 02/06/21 07:38 Labs: Abnormal lab results 02/05/21 02/05/21 02/06/21 Range/Units 21:50 21:50 07:38 RBC 5.26 H (3.65-5.03) M/mm3 MCV 83 L (84-94) fl [place] % (Auto) (0.0-7.3) % Glucose 117 H (75-100) mg/dL HDL Cholesterol 30 L (40-59) mg/dL 02/06/21 Range/Units 07:38 RBC 5.09 H (3.65-5.03) M/mm3 MCV 83 L (84-94) fl [place] % (Auto) 7.8 H (0.0-7.3) % Glucose (75-100) mg/dL HDL Cholesterol (40-59) mg/dL - Imaging and Cardiology CT scan - chest: image reviewed Assessment and Plan The patient is a 60-year-old male with a history of hypertension who presented with left-sided chest pain. CTA of his chest revealed an ascending aortic aneurysm measuring at approximately 5.5 cm. I do not believe his chest pain is associated with the aneurysm. Upon arrival the patient did have a systolic blood pressure in the 160s with a diastolic blood pressure in the 100s. He is on Norvasc to maintain his blood pressure. I would also recommend adding a b eta-phyllis such as metoprolol with a goal of systolic blood pressure less than 120. This also decreases contractility and therefore decreases the shear stress on the aneurysm. Statin therapy is also been shown to reduce complications such as associated dissections. Given the size is 5.5 cm the patient has reached the surgical threshold if he is indeed an adequate candidate for repair. At this time he appears to be asymptomatic so there is no need for emergent repair. I would recommend adding those medications and following up with the cardiology consult and cardiac testing to determine whether he is an adequate candidate. Repair of an ascending aortic aneurysm is typically performed by cardiac surgeons so he will require a referral to either [place] or [place] upon discharge. I discussed this with the patient who expressed understanding and agrees with the plan.
--- NOTE | 2021-02-06 12:20 | Consultation ---
History of Present Illness Consult date: 02/06/21 Requesting physician: LISA GORE Consult reason: chest pain History of present illness: 60-year-old [place] Citizen male history of hypertension presents to the hospital left sided burning in the chest negative troponin x3 with some intermittent shortness of breath had a CAT scan of the chest revealed aortic aneurysm of 5.5 cm. Patient symptomology did not correspond to his aneurysm. Patient prior to this is ambulatory without issues had no syncope no lightheadedness no dizziness discussed this with patient's daughter Past History Past Medical History: hypertension Past Surgical History: Other (Lithotripsy for multiple renal calculi) Social history: no significant social history. denies: smoking, alcohol abuse Family history: CAD (Brother of [place]) Medications and Allergies Allergies Allergy/AdvReac Type Severity Reaction Status Date / Time No Known Allergies Allergy Verified 09/15/19 19:39 Home Medications Medication Instructions Recorded Confirmed Last Taken Type Amlodipine Besylate [Norvasc] 5 mg PO DAILY #30 tablet 09/16/19 02/06/21 1 Day Ago Rx ~02/05/21 Butalb/Acetamin/Caff 50-325-40 1 tab PO Q6HR PRN #12 tab 09/16/19 02/06/21 1 Day Ago Rx [Fioricet 50-325-40] ~02/05/21 Meclizine [Antivert] 25 mg PO Q8H PRN #24 tablet 09/16/19 02/06/21 1 Day Ago Rx ~02/05/21 Active Meds: Active Medications Acetaminophen (Acetaminophen 325 Mg Tab) 650 mg PO Q4H PRN PRN Reason: Pain MILD(1-3)/Fever >100.5/LIN Aspirin (Aspirin Ec 325 Mg Tab) 325 mg PO QDAY ANGELIKA Heparin Sodium (Porcine) (Heparin 5,000 Unit/1 Ml Vial) 5,000 unit SUB-Q Q8HR ANGELIKA Magnesium Hydroxide (Magnesium Hydroxide (Mom) Oral Liqd Udc) 30 ml PO Q4H PRN PRN Reason: Constipation Metoprolol Tartrate (Metoprolol Tartrate 25 Mg Tab) 12.5 mg PO BID ANGELIKA Morphine Sulfate (Morphine 2 Mg/1 Ml Inj) 2 mg IV Q5MIN PRN PRN Reason: Chest Pain Nitroglycerin (Nitroglycerin 0.4 Mg Tab Subl) 0.4 mg SL Q5M PRN PRN Reason: Chest Pain Last Admin: 02/06/21 10:03 Dose: 0.4 mg Documented by: Ondansetron HCl (Ondansetron 4 Mg/2 Ml Inj) 4 mg IV Q8H PRN PRN Reason: Nausea And Vomiting Sodium Chloride (Sodium Chloride 0.9% 10 Ml Flush Syringe) 10 ml IV BID ANGELIKA Last Admin: 02/06/21 10:04 Dose: 10 ml Documented by: Sodium Chloride (Sodium Chloride 0.9% 10 Ml Flush Syringe) 10 ml IV PRN PRN PRN Reason: LINE FLUSH Tramadol HCl (Tramadol 50 Mg Tab) 50 mg PO Q6H PRN PRN Reason: Pain, Moderate (4-6) Review of Systems All systems: negative (as per hpi) Physical Examination Vital Signs Temp Pulse Resp BP Pulse Ox 98.8 F 104 H 18 163/100 97 02/05/21 21:32 02/05/21 21:32 02/05/21 21:32 02/05/21 21:32 02/05/21 21:32 General appearance: no acute distress, well-nourished HEENT: Positive: PERRL, Mucus Membranes Moist Neck: Positive: neck supple, trachea midline Cardiac: Positive: Reg Rate and Rhythm, S1/S2. Negative: Audible Murmur Lungs: Positive: clear to auscultation, Normal Breath Sounds Neuro: Positive: Grossly Intact Abdomen: Positive: Soft, Active Bowel Sounds. Negative: Tender, Distended Male genitourinary: Positive: normal Skin: Positive: Clear Incision: Cardiac Cath Site Musculoskeletal: No Pain, Normal Range of Motion Extremities: Present: normal. Absent: edema Results 02/06/21 07:38 02/06/21 07:38 Cardiac Enzymes 02/05/21 Range/Units 21:50 AST 17 (5-40) units/L Lipids 02/06/21 Range/Units 07:38 Triglycerides 134 (2-149) mg/dL Cholesterol 127 (50-199) mg/dL HDL Cholesterol 30 L (40-59) mg/dL Cholesterol/HDL Ratio 4.23 % CBC 02/05/21 02/06/21 Range/Units 21:50 07:38 WBC 8.1 7.2 (4.5-11.0) K/mm3 RBC 5.26 H 5.09 H (3.65-5.03) M/mm3 Hgb 14.9 14.1 (11.8-15.2) gm/dl Hct 43.6 42.1 (35.5-45.6) % Plt Count 205 190 (140-440) K/mm3 Lymph # (Auto) 2.4 2.5 (1.2-5.4) K/mm3 [place] # (Auto) 0.5 0.6 (0.0-0.8) K/mm3 Eos # (Auto) 0.1 0.2 (0.0-0.4) K/mm3 Baso # (Auto) 0.1 0.0 (0.0-0.1) K/mm3 Comprehensive Metabolic Panel 02/05/21 02/06/21 Range/Units 21:50 07:38 Sodium 138 139 (137-145) mmol/L Potassium 3.8 4.2 (3.6-5.0) mmol/L Chloride 102.9 106.3 (98-107) mmol/L Carbon Dioxide 23 24 (22-30) mmol/L BUN 13 15 (9-20) mg/dL Creatinine 0.9 0.9 (0.8-1.3) mg/dL Glucose 117 H 93 (75-100) mg/dL Calcium 9.3 8.5 (8.4-10.2) mg/dL AST 17 (5-40) units/L ALT 21 (7-56) units/L Alkaline Phosphatase 64 (35-129) units/L Total Protein 7.7 (6.3-8.2) g/dL Albumin 4.6 (3.9-5) g/dL - Imaging and Cardiology Echo: pending EKG interpretations - Telemetry EKG Rhythm: Sinus Rhythm (Sinus rhythm nonspecific ST-T) Assessment and Plan 60-year-old male with history of hypertension with atypical chest pain cardiac enzymes negative incidental finding of thoracic aortic aneurysm of 5.5 cm patient symptomology do not correspond with aneurysm. We will do a left heart catheterization given anticipated near future repair. Explained risk and benefits discussed this in detail with the patient patient's daughter - Patient Problems (1) Acute chest pain Current Visit: Yes Status: Acute (2) Aneurysm, ascending aorta Current Visit: Yes Status: Acute (3) Hypertension Current Visit: Yes Status: Chronic Qualifiers: Hypertension type: essential hypertension Qualified Code(s): I10 - Essential (primary) hypertension
[2021-02-06] MEDS ORDERED: SODIUM CHLORIDE 0.9% 500 ML 500 ML IV SCH (13:00)
--- NOTE | 2021-02-06 13:04 | Event Note ---
Date: 02/06/21 60-year-old male admitted with chief complaint of chest pain Troponin negative Patient found to have 5.5 cm ascending aorta aneurysm Cardiology consulted for chest pain Vascular surgery consulted for aortic aneurysm Plan for left heart cath in a.m. N.p.o. after midnight
[2021-02-06] MEDS: METOPROLOL TARTRATE 25 MG TAB PO SCH ×2 (14:33→21:37)
[2021-02-06] MEDS: HEPARIN 5,000 UNIT/1 ML VIAL SUB-Q SCH ×2 (14:37→21:37)
[2021-02-07 05:51] LABS: Basophils # (Auto) 0.1 K/mm3 (0.0-0.1); Basophils % (Auto) 0.9 % (0.0-1.8); Eosinophils # (Auto) 0.2 K/mm3 (0.0-0.4); Eosinophils % (Auto) 2.8 % (0.0-4.3); Hematocrit 42.1 % (35.5-45.6); Hemoglobin 14.7 gm/dl (11.8-15.2); Lymphocytes # (Auto) 2.5 K/mm3 (1.2-5.4); Lymphocytes % (Auto) 32.7 % (13.4-35.0); Mean Corpuscular HGB Conc 35 % (32-34); Mean Corpuscular Volume 82 fl (84-94); Monocytes # (Auto) 0.5 K/mm3 (0.0-0.8); Platelet Count 193 K/mm3 (140-440); Red Blood Count 5.16 M/mm3 (3.65-5.03); Red Cell Distribution Width 13.7 % (13.2-15.2)
[2021-02-07 05:58] LABS: INR 1.03 (0.87-1.13)
[2021-02-07 06:11] LABS: BUN/Creatinine Ratio 18; Blood Urea Nitrogen 16 mg/dL (9-20); Calcium 9.1 mg/dL (8.4-10.2); Hemolysis Index 4
[2021-02-07] MEDS: HEPARIN 5,000 UNIT/1 ML VIAL SUB-Q SCH (06:52)
[2021-02-07] MEDS ORDERED: ASPIRIN EC 325 MG TAB PO ONE (07:38)
[2021-02-07] MEDS ORDERED: SODIUM CHLORIDE 0.9% 500 ML 500 ML ONE (07:38)
[2021-02-07] MEDS ORDERED: SODIUM CHLORIDE 0.9% 500 ML 500 ML IV SCH (08:00)
[2021-02-07] MEDS ORDERED: LIDOCAINE (2%) 20 MG/1 ML VIAL 20 ML MDV INFILTRATI ONE (08:09)
[2021-02-07] MEDS ORDERED: HEPARIN/NS 5000 UNIT/500ML 1,000 ML IR ONE (08:09)
[2021-02-07] MEDS ORDERED: VERAPAMIL 5 MG/2 ML INJ ONE (08:09)
[2021-02-07] MEDS: HEPARIN 10,000 UNITS/10 ML VIAL ONE ×2 (08:47→09:00)
[2021-02-07] MEDS: fentaNYL 100 MCG/2 ML INJ ONE ×2 (08:52→08:58)
[2021-02-07] MEDS: MIDAZOLAM 2 MG/2 ML INJ ONE ×2 (08:52→08:58)
[2021-02-07] MEDS ORDERED: ASPIRIN EC 325 MG TAB PO SCH (10:00)
--- NOTE | 2021-02-07 10:58 | Cardiac Catherization Report ---
DATE OF SERVICE: 02/07/2021 CARDIAC CATHETERIZATION REPORT The patient is a 60-year-old [place] gentleman who was admitted with a left-sided burning chest pain with troponins being negative. CT scan of the chest revealed aortic aneurysm of 5.5 cm with atypical chest pains with aortic aneurysm and previous history of essential hypertension and brother of myocardial infarction. Cardiac catheterization being scheduled for diagnostic and prognostic purposes prior to further evaluation of his aortic aneurysm. DESCRIPTION OF PROCEDURE: Patient was brought to the catheterization laboratory in a fasting condition. The patient was evaluated for moderate sedation and was noted to be an appropriate candidate for moderate sedation. Received IV Versed and fentanyl. Subsequently, local anesthesia was given in the right wrist area and right radial artery puncture was made using 21-gauge arterial puncture needle. A 5-[place]ian slender sheath was introduced and received IV Versed and Fentanyl in addition to intra-arterial 5 mg of verapamil and intravenous heparin 3000 units. Using a 6-[place] multipurpose catheter, right coronary angiograms were obtained in multiple views followed by left ventriculogram done in TINSLEY projection using hand injection. Pressures were recorded during the pullback. A 6-Zambian JL 4.0 diagnostic catheter was used to engage the left coronary artery. Angiograms of the left coronary artery were obtained. After completion of obtaining the angiograms, catheters were removed. Radial sheath was removed and a radial band was applied. Patient tolerated the procedure well. Hemodynamically stable. The patient was monitored for any side effects from moderate sedation. His moderate sedation started at 8:52 a.m. and monitoring ended at 9:09 a.m. At the end of the procedure, the patient is communicating normally, moving all the extremities. No focal deficits noted. Breathing normally. Vital signs have been stable. The patient was transferred to the room in stable condition. Following findings were noted. HEMODYNAMICS: Opening aortic pressure 121/78. Left ventricular pressure 121/17. No gradient across the aortic valve. Estimated ejection fraction of 60%-65%. Left ventriculogram done in [place]INS[place] projection showed normal sized left ventricle with normal contractility. End-diastolic and systolic volumes are normal. Mitral regurgitation could not be evaluated because of limited amount of dye injected. RIGHT CORONARY ARTERY: Codominant vessel arising normally from the anterior cusp. This vessel is tortuous, but angiographically smooth and normal. Left coronary artery arises normally from left coronary cusp. The left main is short, angiographically smooth and normal. The LAD and its branches, circumflex artery and its branches are angiographically smooth and normal. FINAL IMPRESSION: 1. Normal sized left ventricle with normal contractility with end diastolic pressure upper limits of normal. 2. Normal coronary anatomy with right coronary artery being the codominant vessel. 3. The patient tolerated the procedure well. No untoward side effects noted from either moderate sedation or from the procedure. The patient was transferred to the room in stable condition. Patient will be continued on risk factor modification and medical therapy. Also, will be evaluated for his thoracic aortic aneurysm measuring 5.5 cm noted on the CT angiogram. This will be evaluated by thoracic surgeon. Findings were explained to the patient. He understands. TID: [id number] RECEIPT: [id number] ROXANA/ELVIS/CATERINA BURDEN
[2021-02-07] MEDS: METOPROLOL TARTRATE 25 MG TAB PO SCH (11:07)
--- NOTE | 2021-02-07 11:46 | Discharge Summary ---
Providers - Providers Date of Admission: 02/06/21 01:12 Attending physician: KRUNAL SIDHU MD 02/06/21 Consult to Cardiac Rehabilitation [CONS] Routine Reason For Exam: Phase I Consult to Cardiac Rehabilitation [CONS] Routine Reason For Exam: Phase I 02/06/21 01:49 Consult to Cardiology [CONS] Routine Consulting Provider: PRITI LEBRON Reason For Exam: chest pain 02/06/21 06:17 Consult to Physician [CONS] Routine Comment: Consulting Provider: PRABHA MCDANIELS Physician Instructions: Reason For Exam: Aneurysm of thoracic aorta Primary care physician: PHYLICIA HO Hospitalization Reason for admission: Chest pain Condition: Good Hospital course: 60-year-old male with known history of hypertension presenting in the emergency room today complaining of chest pain and dizziness. Chest pain is said to be left-sided. There has been no radiation. Denies any nausea vomiting, no headache and no diaphoresis. He has been having some intermittent shortness of breath. He denies any fever or chills, no headache, no nausea vomiting and no abdominal pain. There is no known relieving or exacerbating factor for his chest pain. Work-up in the emergency room today, CT angiogram of the chest reveals a 5.5 cm aneurysmal dilatation of the ascending thoracic aorta. Chest x-ray was unremarkable. Troponin was negative. EKG appeared slightly different from previous. Patient be admitted for chest pain work-up. Patient underwent cardiac catheterization which was unremarkable. Except for the finding of the aneurysm with palpitation. Patient was evaluated by both cardiology and vascular all determining that there is aneurysm questionable cause of his chest pain. He is to follow with the [facility] cardiothor[facility] surgeon upon discharge this has been discussed with him. I have also including the beta-phyllis to ensure better blood pressure control at this has been discussed with the patient in detail. Discharge diagnosis Atypical chest pain likely costochondritis Status post cardiac cath normal coronary arteries Incidental finding of 5.5 cm ascending thoracic aorta aneurysm HTN Near Syncope Abnormal EKG Disposition: TO HOME OR SELFCARE Final Discharge Diagnosis (Prints w/discharge instructions): Atypical chest pain likely costochondritis Time spent for discharge: 35-minute Core Measure Documentation - Palliative Care Palliative Care/ Comfort Measures: Not Applicable - Core Measures Any of the following diagnoses?: none Exam - Physical Exam Narrative exam: VITAL SIGNS: Reviewed. GENERAL: The patient appears normally developed, Vital signs as documented. HEAD: No signs of head trauma. EYES: Pupils are equal. Extraocular motions intact. EARS: Hearing grossly intact. MOUTH: Oropharynx is normal. NECK: No adenopathy, no JVD. CHEST: Chest with clear breath sounds bilaterally. No wheezes, rales, or rhonchi. CARDIAC: Regular rate and rhythm. S1 and S2, without murmurs, gallops, or rubs. VASCULAR: No Edema. Peripheral pulses normal and equal in all extremities. ABDOMEN: Soft, non tender and non distended. No rebound or guarding, and no masses palpated. Bowel Sounds normal. MUSCULOSKELETAL: Good range of motion of all major joints. Extremities without clubbing, cyanosis or edema. NEUROLOGIC EXAM: Alert and oriented x 3 No focal sensory or strength deficits. Speech normal. Follows commands. PSYCHIATRIC: Mood normal. SKIN: detail exam as documented in skin assessment - Constitutional Vitals: Temp Pulse Resp BP Pulse Ox 98.0 F 85 16 132/87 98 02/07/21 04:18 02/07/21 04:18 02/07/21 04:18 02/07/21 04:18 02/07/21 04:18 Plan Activity: advance as tolerated, fall precautions Diet: low fat Special Instructions: record daily weights, record daily BP diary (Keep blood pressure less than 120/60) Plan of Treatment: Follow with [facility] cardi[facility] surgical [facility] Follow up with: PRIMARY CAREMD [Referring] - 3-5 Days MAGALY MONTIEL MD [Staff Physician] - 7 Days Prescriptions: Metoprolol [Lopressor TAB] 25 mg PO BID #60 tablet
--- NOTE | 2021-02-07 13:53 | Progress Note ---
Assessment and Plan Telemetry reviewed: Sinus rhythm 90. No events Assessment and Plan 60-year-old male with history of hypertension with atypical chest pain cardiac enzymes negative incidental finding of thoracic aortic aneurysm of 5.5 cm patient symptomology do not correspond with aneurysm. We will do a left heart catheterization given anticipated near future repair. Explained risk and benefits discussed this in detail with the patient patient's daughter Acute chest pain Chest pain is currently resolved Patient underwent LHC this a.m: normal coronary arteries. Echocardiogram is pending Aneurysm, ascending aorta Patient will be scheduled to follow-up with [facility] cardiothoracic surgery as outpatient Hypertension Optimize antihypertensive regimen. Increase metoprolol to 25 mg p.o. twice daily DVT prophylaxis Heparin SQ Patient is currently in stable cardiac condition. Aneurysm of the ascending aorta will be addressed by [facility] cardiothoracic surgery as outpatient. Patient may discharge from cardiology standpoint. Patient should follow-up with Dr Benson in our [place] office on 02/14/2021 at 9 AM. #[phone] This patient was seen in conjunction with Dr Oden who agrees with this assessment and plan of care - Patient Problems (1) Acute chest pain Current Visit: Yes Status: Acute (2) Aneurysm, ascending aorta Current Visit: Yes Status: Acute (3) Hypertension Current Visit: Yes Status: Chronic Qualifiers: Hypertension type: essential hypertension Qualified Code(s): I10 - Essential (primary) hypertension Subjective Date of service: 02/07/21 Principal diagnosis: Chest Pain Interval history: Patient resting comfortably in bed. No shortness of breath or chest pain overnight. Telemetry reviewed: Sinus rhythm 90. No events Objective Vital Signs Temp Pulse Resp BP BP Pulse Ox 02/07/21 11:32 97.8 F 68 19 139/101 98 02/07/21 04:18 98.0 F 85 16 132/87 98 02/07/21 04:00 69 18 02/07/21 03:44 98.0 F 85 12 132/87 98 02/06/21 23:20 98.0 F 69 12 145/88 97 02/06/21 21:37 75 144/96 02/06/21 20:00 74 02/06/21 19:19 98.4 F 75 17 144/96 99 02/06/21 15:52 98.0 F 74 18 139/91 98 - Physical Examination General: No Apparent Distress HEENT: Positive: PERRL, Mucus Membranes Moist Neck: Positive: neck supple, trachea midline Cardiac: Positive: Reg Rate and Rhythm, S1/S2 Lungs: Positive: clear to auscultation, Normal Breath Sounds Neuro: Positive: Grossly Intact Abdomen: Positive: Soft, Active Bowel Sounds. Negative: Tender, Distended Skin: Positive: Clear Incision: Cardiac Cath Site Musculoskeletal: No Pain, Normal Range of Motion Extremities: Present: normal. Absent: edema - Labs and Meds Coagulation 02/07/21 Range/Units 05:29 PT 13.4 (12.2-14.9) Sec. INR 1.03 (0.87-1.13) CBC 02/07/21 Range/Units 05:29 WBC 7.8 (4.5-11.0) K/mm3 RBC 5.16 H (3.65-5.03) M/mm3 Hgb 14.7 (11.8-15.2) gm/dl Hct 42.1 (35.5-45.6) % Plt Count 193 (140-440) K/mm3 Lymph # (Auto) 2.5 (1.2-5.4) K/mm3 [place] # (Auto) 0.5 (0.0-0.8) K/mm3 Eos # (Auto) 0.2 (0.0-0.4) K/mm3 Baso # (Auto) 0.1 (0.0-0.1) K/mm3 Comprehensive Metabolic Panel 02/07/21 Range/Units 05:29 Sodium 141 (137-145) mmol/L Potassium 4.2 (3.6-5.0) mmol/L Chloride 103.1 (98-107) mmol/L Carbon Dioxide 27 (22-30) mmol/L BUN 16 (9-20) mg/dL Creatinine 0.9 (0.8-1.3) mg/dL Glucose 100 (75-100) mg/dL Calcium 9.1 (8.4-10.2) mg/dL - Imaging and Cardiology Echo: pending Cardiac cath: report reviewed - Telemetry EKG Rhythm: Sinus Rhythm
[2021-02-07 14:57] VITALS: BP 132/96
--- NOTE | 2021-02-08 12:51 | Electrocardiograph Report ---
[facility] Test Date: 2021-02-05 Test Time: 21:38:04 Pat Name: MARILIA HECTOR Department: Room: A475 1 Gender: M Stapler Hand: SAMANTHA : 1960 Requested By: ASTON GOLDEN Order Number: [id number] Reading MD: Vance Kenney Measurements Intervals [place] Rate: 97 P: 50 VT: 203 QRS: 6 QRSD: 79 T: 60 QT: 347 QTc: 442 Interpretive Statements Sinus rhythm Borderline prolonged VT interval No previous ECG available for comparison Electronically Signed On 02-08-2021 12:51:17 EDT by Vance Kenney
--- NOTE | 2021-02-08 12:57 | Electrocardiograph Report ---
[facility] Test Date: 2021-02-06 Test Time: 10:55:36 Pat Name: MARILIA HECTOR Department: Room: A475 1 Gender: M Headhunter: RJ : 1960 Requested By: GILDA LILLY Order Number: [id number] Reading MD: Vance Kenney Measurements Intervals [place] Rate: 89 P: 27 MO: 182 QRS: -8 QRSD: 89 T: 40 QT: 364 QTc: 443 Interpretive Statements Sinus rhythm Compared to ECG 02/05/2021 21:38:04 No significant changes Electronically Signed On 02-08-2021 12:57:24 EDT by Vance Kenney
--- NOTE | 2021-02-10 17:05 | Electrocardiograph Report ---
[facility] Test Date: 2021-02-07 Test Time: 10:26:49 Pat Name: MARILIA HECTOR Department: Room: A475 1 Gender: M Gis Web Developer: VENU : 1960 Requested By: KOLBY BROWNE Order Number: [id number] Reading MD: Carlos A Oden Measurements Intervals [place] Rate: 74 P: 5 LA: 185 QRS: 0 QRSD: 86 T: 39 QT: 389 QTc: 431 Interpretive Statements Sinus rhythm Compared to ECG 02/06/2021 10:55:36 No significant changes Electronically Signed On 02-10-2021 17:05:17 EDT by Carlos A Oden
== END 2021-02-07 14:37 | disposition home or self-care (01) ==
LOC: ED 21:25 → 4A 02-06 01:12
PROVIDERS: ADMIT Internal Medicine Geriatric Medicine; ATTEND Internal Medicine
DX: R07.89 Other chest pain (principal); I10 Essential (primary) hypertension; I71.2 Thoracic aortic aneurysm, without rupture; R03.0 Elevated blood-pressure reading, without diagnosis of hypertension; R42 Dizziness and giddiness; R94.31 Abnormal electrocardiogram [ECG] [EKG]; Z79.82 Long term (current) use of aspirin
CPT/HCPCS: 36415; 70450; 71046; 71275; 80048; 80053; 80061; 82962; 84484; 85025; 85379; 85610; 93005; 93458; 96361; 96372; 96374; 99291; C1894; G0378; J1644; J2250; J3010; J7040; Q9967